=== PATIENT | male | born 1960 | race Caucasian/White ===

== ENCOUNTER 2018-12-03 10:29 | Emergency (ER) | payer MEDICARE, MEDICAID, SELFPAY ==
[2018-12-03 10:29] VITALS: BP 125/74; PULSE 73; RESP 20; TEMP 36.6; O2SAT 96; BMI 40.6
--- NOTE | 2018-12-03 11:10 | ED.VIS.GEN ---
History of Present Illness Chief Complaint: Nausea/Vomiting/Diarrhea Informant: Patient Onset: Yesterday Current Severity: Mild Maximum Severity: Moderate Narrative: Patient presents with nausea, vomiting, and diarrhea after eating out 2 days ago. He developed his illness yesterday. He believes he has food poisoning. His is ill with similar symptoms. He reports some upper abdominal cramping. His primary care physician had told him to take Imodium which has slowed his diarrhea somewhat. Past Medical History - Allergies and Home Meds Allergies/Adverse Reactions: Allergies codeine Allergy (Verified 12/03/18 10:31) Other furosemide [From Lasix] Allergy (Verified 12/03/18 10:31) Rash guaifenesin Allergy (Verified 12/03/18 10:31) Other levofloxacin [From Levaquin] Allergy (Verified 12/03/18 10:31) Other prednisolone Allergy (Verified 12/03/18 10:31) Other Primary Care Physician: Rishabh Gamino MD [Primary Care Provider] - Prior records reviewed: Yes Past Medical History: - - Reviewed Lives: Spouse/ Significant Other Smoking Status: Unknown if ever smoked Review of Systems General: Reports: Fever, Subjective. Denies: Chills Eyes: Denies: Visual changes - bilaterally ENT: Denies: Bilateral ear pain Cardiovascular: Denies: Chest pain Respiratory: Denies: Dyspnea Gastrointestinal: Reports: Abdominal pain, Nausea, Vomiting, Diarrhea Genitourinary: Denies: Dysuria Musculoskeletal: Denies: Back pain Skin: Denies: Rash Neurological: Denies: Headache Hematologic: Denies: Easy bruising, Easy bleeding Allergy: Denies: Uticaria Physical Exam Vital Signs/Narrative: Vital Signs Temp Pulse Resp BP Pulse Ox 12/03/18 10:29 97.9 F 73 20 H 125/74 H 96 Inital Vital Signs reviewed: Yes General: Well nourished, Well developed ENT: Dry mucous membranes Neck: Supple Cardiovascular: Regular rate, Regular rhythm Respiratory: No distress, CTA bilaterally Abdomen: Soft, Tender - Out upper abdominal tenderness., Hypoactive bowel sounds. Negative for: Guarding, Rebound tenderness Back: Nontender Skin: Normal color Neurological: Alert, Oriented x3 Psychological: Normal affect Diagnostic/Tx/Re-eval Laboratory Results 12/03/18 12/03/18 12/03/18 11:31 11:31 12:15 WBC 6.1 RBC 5.50 Hgb 15.7 Hct 47.1 MCV 85.6 MCH 28.5 MCHC 33.3 RDW Std Deviation 41.1 RDW Coeff of Ramon 13.2 Plt Count 234 MPV 9.9 Immature Gran % (Auto) 0.200 Neut % (Auto) 70.7 H Lymph % (Auto) 18.4 L [place] % (Auto) 8.2 Eos % (Auto) 1.5 Baso % (Auto) 1.0 Absolute Neuts (auto) 4.3 Absolute Lymphs (auto) 1.12 Nucleated RBC % 0 Sodium 136 Potassium 3.0 L Chloride 102 Carbon Dioxide 28.0 Anion Gap 6 BUN 16 Creatinine 1.08 Estim Creat Clear Calc 79.84 Est GFR (MDRD) Af Amer 90 Est GFR (MDRD) Non-Af 74 BUN/Creatinine Ratio 14.8 Glucose 97 Calcium 8.6 Total Bilirubin 0.70 Direct Bilirubin 0.17 AST 31 ALT 49 Alkaline Phosphatase 94 Total Protein 7.8 Albumin 3.9 Globulin 3.9 Lipase 191 Urine Color Yellow Urine Clarity Sl. Cloudy Urine pH 6.0 Ur Specific [place] 1.015 Urine Protein 15 H Urine Glucose (UA) Normal Urine Ketones 5 H Urine Occult Blood 150 H Urine Nitrite Negative Urine Bilirubin Negative Urine Urobilinogen Normal Ur Leukocyte Esterase 500 H Urine RBC 10-25 SEEN Urine WBC 25-50 SEEN Ur Squamous Epith Cells 0-5 SEEN Urine Bacteria 1+ Urine Mucus 0 SEEN - Medical Decision Making Patient refused IV fluids. He was given p.o. Bentyl and Zofran. He is been up and ambulate in the emergency room without difficulty. Stool studies were ordered but he has been unable to provide a sample. Patient will be given Bentyl and Zofran for home. He will also be given 3 days of Bactrim to cover his urine. ED Disposition - Plan for ED Patient: Disposition: Home or Assisted Living Diagnosis: Gastroenteritis, Hypokalemia, Bladder infection Prescriptions: Smz/Tmp Ds [Bactrim Ds] 1 tablet PO BID #6 tablet Potassium Chloride [K-Dur] 20 meq PO BID #8 tablet Ondansetron [Zofran Odt] 4 mg PO Q8H PRN PRN #10 tablet PRN Reason: Nausea Referrals: Rishabh Gamino MD [Primary Care Provider] - 1 Week if not improving
[2018-12-03] MEDS: Ondansetron ODT 4 MG Tablet PO (11:23)
[2018-12-03] MEDS: Dicyclomine 10 MG Capsule 20 MG PO (11:23)
[2018-12-03 11:42] LABS: Absolute Lymphocyte Count 1.12 X10^3/uL (0.83-4.51); Absolute Neutrophil Count 4.3 X10^3/uL (2.0-7.7); Basophil# 0.06 X10^3/uL; Eosinophil# 0.09 X10^3/uL; Eosinophils% 1.5 % (0-5); Hematocrit 47.1 % (40-54); Hemoglobin 15.7 g/dL (13.0-16.5); Lymphocyte # 1.12 X10^3/ul (4.0); Lymphocyte % 18.4 % (19-41); Mean Corp Hgb Conc 33.3 g/dL (32-36); Mean Corpuscular Hgb 28.5 pg (27.0-32.0); Mean Corpuscular Volume 85.6 fL (80-94); Mean Platelet Vol. 9.9 fl (6.2-12.0); Monocyte% 8.2 % (0-10); NRBC Flagged by Analyzer 0 % (0-5); Neutrophil # 4.32 X10^3/uL (2.7-7.7); Neutrophil % 70.7 % (47-70); Platelet Count 234 K/mm3 (150-450); RBC Distribution Width CV 13.2 % (11.6-14.6); RBC Distribution Width SD 41.1 fl (35.1-43.9); White Blood Count 6.1 K/mm3 (4.4-11.0)
[2018-12-03 11:58] LABS: AST(SGOT) 31 U/L (15-37); Alanine Aminotransfer ALT/SGPT 49 U/L (16-61); Albumin, Serum 3.9 g/dL (3.2-5.0); Alkaline Phosphatase 94 U/L (45-117); Anion Gap 6 (5-15); BUN 16 mg/dL (7-18); BUN/Creat Ratio 14.8 RATIO (10-20); Bilirubin, Direct 0.17 mg/dL (0.00-0.30); Calcium,Total 8.6 mg/dL (8.5-10.1); Chloride 102 mmol/L (98-107); Creatinine, Serum 1.08 mg/dL (0.70-1.30); EST Glomerular Filtration Rate 74 mL/min (>60); Est Glom Filt Rate - Afr Amer 90 mL/min (>60); Estimated Creatinine Clearance 79.84 ml/min; Globulin 3.9 g/dL (2.2-4.2); Glucose 97 mg/dL (74-106); Lipase 191 U/L (73-393); Protein, Total 7.8 g/dL (6.4-8.2); Sodium Level 136 mmol/L (136-145)
[2018-12-03 12:20] LABS: Mucous, Urine 0 SEEN /hpf (<or=2+)
[2018-12-03 12:22] LABS: Color, Urine Yellow (Yellow); Glucose, Dipstick Normal (Normal); Ketone-Dipstick 5 mg/dl (Negative); Leukocyte Esterase-Dipstick 500 /ul (Negative); Nitrite-Dipstick Negative (Negative); Occult Blood-Urine 150 /ul (Negative); Protein-Dipstick 15 mg/dl (Negative); Specific Gravity, Urine 1.015 (1.002-1.030); Urine Bilirubin Dipstick Negative (Negative); Urine Clarity Sl. Cloudy (Clear); Urine Urobilinogen Normal (Normal)
[2018-12-03 12:39] LABS: Bacteria 1+ /hpf (None Seen); Red Blood Cells-Urine 10-25 SEEN /hpf (0-5); Squamous Epithelial Cells - UA 0-5 SEEN /hpf (0-5); White Blood Cells 25-50 SEEN /hpf (0-5)
[2018-12-03 13:46] VITALS: BP 136/82; PULSE 95; RESP 17; O2SAT 96
[2018-12-03 14:09] VITALS: BP 128/86; PULSE 72; RESP 18; O2SAT 99
== END 2018-12-03 14:09 | disposition home or self-care (01) ==
PROVIDERS: Emergency Provider Emergency Medicine; Family Provider Family Medicine; PCP Family Medicine
DX: K52.9 Noninfective gastroenteritis and colitis, unspecified (principal); N30.90 Cystitis, unspecified without hematuria; E87.6 Hypokalemia
CPT/HCPCS: 36415; 80048; 80076; 81001; 83690; 85025; 99283

== ENCOUNTER 2019-01-27 16:06 | Emergency (ER) | payer MEDICARE, MEDICAID, SELFPAY ==
[2019-01-27 16:07] VITALS: BP 124/77; PULSE 79; RESP 15; TEMP 36.8; O2SAT 95; BMI 40.9
--- NOTE | 2019-01-27 17:01 | RAD_ITS ---
STUDY: X-RAY CHEST REASON FOR EXAM: Male, 58 years old. Cough. Shortness of breath. TECHNIQUE: Single AP portable view of the chest. COMPARISON: None. FINDINGS: The lungs are clear and expanded. There is no demonstrated pleural abnormality. Normal size heart. Normal mediastinum and yoni. Normal visualized pulmonary arteries. Normal visualized aortic arch and descending thoracic aorta. There are diffuse degenerative changes of the visualized thoracic spine. Normal visualized ribs, clavicles, and shoulders. There is no demonstrated abnormality of the visualized soft tissue structures of the upper abdomen. RAD/Chest 1 View (Portable) IMPRESSION: Degenerative changes, as described above. No demonstrated acute cardiopulmonary process. Electronically Signed: Manjeet Anderson MD at 17:38 EDT , Service support ,
--- NOTE | 2019-01-27 17:01 | ED.DEP ---
ED Disposition - Plan for ED Patient: Instructions: VIRAL SYNDROME (Adult) Prescriptions: Benzonatate [Tessalon Perle] 200 mg PO TID PRN PRN #20 capsule PRN Reason: Cough Referrals: Rishabh Gamino MD [Primary Care Provider] -
--- NOTE | 2019-01-27 17:05 | ED.VISSUMM ---
- ER Visit Summary Date of Service: 01/27/19 Chief Complaint: URI History of Present Illness: The patient is a 58 M presenting with URI symptoms. He states this has been ongoing for the past 2.5 weeks. He complains of runny nose, cough, congestion. He was seen by his primary care physician and started on doxycycline. He states he finished this 2 days ago and has continued symptoms. He denies fever. Denies chest pain or shortness of breath. He chews tobacco. No other complaints. Physical Examination: Vitals are stable. Patient is afebrile. Alert no acute distress. HEENT exam is unremarkable. Pharynx is normal, uvula midline. TMs obscured by cerumen bilaterally. Neck is supple. No meningismus Lungs are clear and equal bilaterally. Heart is regular rate and rhythm. Abdomen is soft nontender nondistended. Extremities are unremarkable. Skin is warm and dry. No rash No focal neurologic deficit. Remainder of exam is unremarkable. Emergency Department Course and Treatment: Chest x-ray shows no acute process. Patient was given prescription for Tessalon. He is advised to follow-up with his primary care physician. Advised return to ED for worsening complaints. Disposition: Discharge home Impression: URI This note was generated with [employer] dictation software. It may contain incorrect words, spelling, and punctuation that were not noted in review of the chart prior to signing ED Disposition - Plan for ED Patient: Disposition: Home or Assisted Living Instructions: VIRAL SYNDROME (Adult) Prescriptions: Benzonatate [Tessalon Perle] 200 mg PO TID PRN PRN #20 cap PRN Reason: Cough Prescription Printed Referrals: Rishabh Gamino MD [Primary Care Provider] -
[2019-01-27 17:17] VITALS: O2SAT 97
== END 2019-01-27 18:07 | disposition home or self-care (01) ==
PROVIDERS: Emergency Provider Emergency Medicine; Family Provider Family Medicine; PCP Family Medicine
DX: J06.9 Acute upper respiratory infection, unspecified (principal); F17.220 Nicotine dependence, chewing tobacco, uncomplicated; I10 Essential (primary) hypertension; Z79.899 Other long term (current) drug therapy
CPT/HCPCS: 71045; 99282

== ENCOUNTER → 2019-06-01 15:59 | Outpatient (CLI) | payer MEDICARE, MEDICAID, SELFPAY ==
[2019-01-31 14:04] VITALS: BMI 40.9
--- NOTE | 2019-06-01 16:19 | RAD_ITS ---
STUDY: X-RAY - LUMBAR SPINE REASON FOR EXAM: Male, 59 years old. PAIN ACROSS LOWER BACK. PATIENT STATES HAS HAD SEVERAL INJURYS TO HIS BACK OVER THE YEARS. TECHNIQUE: 3 view(s) of the lumbar spine were obtained. COMPARISON: None FINDINGS: Normal lumbar lordosis. There is multilevel endplate spondylosis of the lumbar vertebrae. There is multi-level degenerative disc disease with multi-level disc space narrowing. The soft tissue structures are unremarkable. RAD/Lumbar Spine 2 or 3 Views IMPRESSION: Degenerative changes of the spine. Electronically Signed: Sarah Porter MD at 8:28 EST Tel , Service support ,
== END ==
PROVIDERS: PCP Family Medicine; Referring Provider Anesthesiology Pain Medicine; Visit Provider Anesthesiology Pain Medicine
DX: M47.816 Spondylosis without myelopathy or radiculopathy, lumbar region (principal); M51.36 Other intervertebral disc degeneration, lumbar region; M48.061 Spinal stenosis, lumbar region without neurogenic claudication
CPT/HCPCS: 72100

== ENCOUNTER → 2021-01-10 | Outpatient (CLI) | payer MEDICARE, MEDICAID, SELFPAY | END | disposition home or self-care (01) | LOC: LABSPEC 15:17 | PROVIDERS: PCP Family Medicine; Visit Provider Physician Assistant | DX: L03.90 Cellulitis, unspecified (principal) | CPT/HCPCS: 87070; 87077; 87205 ==

== ENCOUNTER 2021-09-03 19:27 | Emergency (ER) | payer MEDICARE, MEDICAID, SELFPAY ==
[2021-09-03 19:27] VITALS: BP 175/82; PULSE 84; RESP 16; TEMP 36.8; O2SAT 96; BMI 40.6
--- NOTE | 2021-09-03 19:45 | ED.RN ---
PT WAS NOT HAPPY THAT HIM AND HIS COULD NOT BE IN THE SAME ROOM,NEAR EACH OTHER AND HAD A SIGN OUTSIDE HIS ROOM TO LET STAFF TAKE PRECAUTIONS FOR POSSIBLE COVID PATIENT SO HE LEFT.
== END 2021-09-03 19:52 | disposition left against medical advice (07) ==
PROVIDERS: PCP Family Medicine
DX: J02.9 Acute pharyngitis, unspecified (principal); Z53.21 Procedure and treatment not carried out due to patient leaving prior to being seen by health care provider

== ENCOUNTER 2023-01-03 14:25 | Emergency (ER) | payer MEDICARE, MEDICAID, SELFPAY ==
[2023-01-03 14:26] VITALS: BP 176/78; PULSE 69; RESP 18; TEMP 36.4; O2SAT 99; BMI 42.1
[2023-01-03] MEDS: 0.9% Normal Saline (1000mL) 1,000 ML 1000 ML IV (15:51)
--- NOTE | 2023-01-03 15:52 | EKG12_ITS ---
Test Reason : SYNCOPE Blood Pressure : / mmHG Vent. Rate : 076 BPM Atrial Rate : 076 BPM P-R Int : 208 ms QRS Dur : 160 ms QT Int : 450 ms P-R-T Axes : -25 -77 017 degrees QTc Int : 506 ms Sinus rhythm with Premature atrial complexes with Aberrant conduction Right bundle branch block Left anterior fascicular block Bifascicular block Abnormal ECG When compared with ECG of 11-NOV-2013 09:32, Fusion complexes are no longer Present Premature ventricular complexes are no longer Present Aberrant conduction is now Present Left anterior fascicular block is now Present Confirmed by MAI ARDON, DARRELL ([id number]), publication editor FRANCISCO JAVIER NOLAN ([id number]) on 01/14/2023 1:57:11 PM Referred By: ORION/MATHEW Confirmed By:DARRELL ONEILL MD
[2023-01-03 15:58] LABS: Absolute Lymphocyte Count 1.94 X10^3/uL (0.83-4.51); Absolute Neutrophil Count 5.8 X10^3/uL (2.0-7.7); Basophil# 0.08 X10^3/uL; Eosinophil# 0.16 X10^3/uL; Eosinophils% 1.9 % (0-5); Hematocrit 46.2 % (40-54); Hemoglobin 14.8 g/dL (13.0-16.5); Lymphocyte # 1.94 X10^3/ul (0.83-4.51); Lymphocyte % 23.2 % (19-41); Mean Corpuscular Hgb 28.4 pg (27.0-32.0); Mean Corpuscular Volume 88.5 fL (80-94); Mean Platelet Vol. 9.9 fl (6.2-12.0); Monocyte# 0.37 X10^3/uL; Monocyte% 4.4 % (0-10); NRBC Flagged by Analyzer 0 % (0-5); Neutrophil % 69.1 % (47-70); Platelet Count 289 K/mm3 (150-450); RBC Distribution Width CV 13.6 % (11.6-14.6); RBC Distribution Width SD 43.9 fl (35.1-43.9); Red Blood Count 5.22 M/mm3 (4.6-6.2); White Blood Count 8.4 K/mm3 (4.4-11.0)
--- NOTE | 2023-01-03 16:05 | RAD_ITS ---
INDICATION: Syncope EXAMINATION/TECHNIQUE: X-RAY - XR Chest 2 Views COMPARISON: 01/27/2019. FINDINGS: The lungs are clear. Tortuous and calcified thoracic aorta. The heart is mildly enlarged. No pleural effusion or pneumothorax. Degenerative changes of the thoracic spine. RAD/Chest PA and Lateral IMPRESSION: No acute radiographic abnormalities. Electronically Signed: Jorden Mcgowan MD at 16:51 EDT ,
[2023-01-03 16:19] LABS: Anion Gap 3 (5-15); BUN 15 mg/dL (7-18); BUN/Creat Ratio 13.3 RATIO (10-20); Chloride 104 mmol/L (98-107); Creatinine, Serum 1.13 mg/dL (0.70-1.30); EST Glomerular Filtration Rate 69 mL/min (>60); Est Glom Filt Rate - Afr Amer 84 mL/min (>60); Estimated Creatinine Clearance 72.49 ml/min; Glucose 124 mg/dL (74-106); Sodium Level 140 mmol/L (136-145); Troponin-I HS 14 pg/mL (3.0-78.0)
[2023-01-03] MEDS: Potassium Chloride Oral Tablet 20 MEQ 40 MEQ PO (17:00)
[2023-01-03 17:03] VITALS: BP 175/71; PULSE 57; RESP 16; O2SAT 95
--- NOTE | 2023-01-03 17:42 | EDS_ITS ---
HPI History of Present Illness Chief Complaint: Syncope Informant: patient Onset/Context/Timing Onset: Days (5) Context: Sudden Onset Timing: Continuous Quality: Aching Location: Midthoracic back and neck Worsened by: Coughing Relieved by: Nothing Narrative Narrative: Patient presents with a syncopal episode that occurred 5 days ago. Patient states that he passed out and fell. Patient states that since that time he has been having some pain in his neck and back. Patient describes it as aching. Patient states it is worse with coughing. Patient states nothing makes it better. Patient denies any sputum production. Patient denies any fevers or chills. Patient denies any chest pain or shortness of breath. Patient denies any palpitations. [facility] Medical History (Updated 01/03/23 @ 17:[address] Srinivasan Beltran, ) Arthritis Cellulitis of left lower extremity Chronic neck and back pain Hay fever Hypertension Shortness of breath Stomach ulcer Home Medications lisinopril 20 mg-hydrochlorothiazide 12.5 mg tablet 1 tab PO DAILY 11/10/13 [History Last Taken Unknown] omeprazole 20 mg capsule,delayed release 20 mg PO BID 11/10/13 [History Last Taken Unknown] clobetasol-emollient 0.05 % topical cream 30 gm TP BID 11/11/13 [History Last Taken Unknown] clotrimazole 1 % topical cream 1 applicatio topical BID 11/11/13 [History Last Taken Unknown] psyllium husk (aspartame) 3.4 gram oral powder packet 1 packet PO DAILY 11/11/13 [History Last Taken Unknown] salicylic acid 6 %-6 % kit,shampoo and gel 1 ea TP BID 11/11/13 [History Last Taken Unknown] ondansetron 4 mg disintegrating tablet 4 mg PO Q8H PRN PRN Nausea #10 tabs 12/03/18 [Rx Last Taken Unknown] potassium chloride 20 mEq tablet,extended release(part/cryst) 20 meq PO BID #8 tabs 12/03/18 [Rx Last Taken Unknown] benzonatate 100 mg capsule 200 mg (2 x 100 mg) PO TID PRN PRN Cough #20 caps 01/27/19 [Rx Last Taken Unknown] benzonatate 200 mg capsule 200 mg PO TID PRN cough #30 caps 02/01/19 [Rx Last Taken Unknown] bacitracin 500 unit/gram topical ointment 1 applic topical BID #30 grams 01/10/21 [Rx Last Taken Unknown] doxycycline monohydrate 100 mg capsule 100 mg PO BID #20 caps 01/10/21 [Rx Last Taken Unknown] Allergy/AdvReac Type Severity Reaction Status Date / Time codeine Allergy Other Verified 01/03/23 14:26 furosemide [From Lasix] Allergy Rash Verified 01/03/23 14:26 guaifenesin Allergy Other Verified 01/03/23 14:26 levofloxacin [From Levaquin] Allergy Other Verified 01/03/23 14:26 prednisolone Allergy Other Verified 01/03/23 14:26 Family History (Updated 01/10/21 @ 14:02 by Jayda Palacio) Mother Breast cancer Surgical History (Updated 01/03/23 @ 17:[address] Srinivasan Beltran DO) History of carpal tunnel surgery Social History Smoking Status: Never smoker Smokeless tobacco user: chewing tobacco alcohol intake: never ROS ROS ED Constitutional Constitutional ED: Denies chills or fever(s) Eyes Eyes: Denies blurry vision or change in vision ENT ENT ED: Denies rhinorrhea or sore throat Cardiovascular Cardiovascular: Denies chest pain or palpitations Respiratory/Chest Respiratory/Chest: Reports cough; Denies dyspnea Gastrointestinal Gastrointestinal: Denies nausea or vomiting Genitourinary Genitourinary ED: Denies dysuria or hematuria Musculoskeletal Musculoskeletal: Reports back pain and neck pain Integumentary Denies abscess or rash Neurologic Neurologic: Denies headache(s) or weakness Allergic/Immunologic Allergic/Immunologic ED: Denies mouth swelling or urticaria EXAM Physical Exam Const Vital Signs: 01/03/23 14:26 01/03/23 14:51 01/03/23 17:03 Temperature 97.5 F L Temperature Source Temporal Pulse Rate 69 57 L Respiratory Rate 18 16 Respiratory Effort Normal Non-Labored Respiratory Pattern Normal Blood Pressure 176/78 H 175/71 H Blood Pressure Mean 110 105 Pulse Ox 99 95 Oxygen Delivery Method Room Air Room Air Positive well nourished, well developed and obese General Appearance ED: well developed and NAD Nutritional Appearance: obese HEENT Reports moist mucous membranes Neck supple and no JVD Resp normal respiratory effort and clear to auscultation bilaterally Cardio regular rate and regular rhythm GI normal to inspection, nondistended, normoactive bowel sounds and non-tender Palpation: soft Back/Spine Back/Spine Narrative: There is tenderness over the mid thoracic paraspinal muscles. There is no midline tenderness. There is no bony crepitance or step-off noted. Range of motion was slightly limited in all motions of the thoracic spine secondary to pain. Extremity normal to inspection General Extremety ED: Negative for edema or tenderness General Extremity: Negative for edema Neuro oriented x3, CN's II-XII intact bilaterally and no sensory deficits noted Sensorium / Orientation: alert Motor Exam: strength 5/5 throughout Psych mental status grossly normal Skin no rashes or lesions noted MDM MDM MDM Narrative Medical decision making narrative: Differential diagnosis includes cardiac dysrhythmia, cardiac ischemia, pneumonia, pneumothorax, electrolyte abnormality, acute kidney injury, acute thoracic strain, and anxiety. EKG will be obtained to assess for cardiac dysrhythmia and cardiac ischemia. Chest x-ray will be obtained to assess for pneumonia, pneumothorax, and thoracic spine fracture. A CBC will be obtained to assess for leukocytosis and anemia. Basic metabolic profile will be obtained to assess for electrolyte abnormality and renal function. High-sensitivity troponin will be obtained to assess for cardiac ischemia. Lab Data Attestation: I reviewed the patient's lab results. Lab results narrative: CBC was reviewed and was within normal limits. Basic metabolic profile was reviewed and showed a potassium of 3.0. The remainder was within normal limits. High-sensitivity troponin was reviewed and was normal at 14. Labs: Laboratory Results - last 24 hr 01/03/23 15:50 WBC 8.4 RBC 5.22 Hgb 14.8 Hct 46.2 MCV 88.5 MCH 28.4 MCHC 32.0 RDW Std Deviation 43.9 RDW Coeff of Ramon 13.6 Plt Count 289 MPV 9.9 Immature Gran % (Auto) 0.400 Neut % (Auto) 69.1 Lymph % (Auto) 23.2 [place] % (Auto) 4.4 Eos % (Auto) 1.9 Baso % (Auto) 1.0 Absolute Neuts (auto) 5.8 Absolute Lymphs (auto) 1.94 Nucleated RBC % 0 Sodium 140 Potassium 3.0 L Chloride 104 Carbon Dioxide 33.0 H Anion Gap 3 L BUN 15 Creatinine 1.13 Estim Creat Clear Calc 72.49 Est GFR (MDRD) Af Amer 84 Est GFR (MDRD) Non-Af 69 BUN/Creatinine Ratio 13.3 Glucose 124 H Calcium 9.0 Troponin I High Sens 14 Radiography Diagnostic Testing: Clinical Impression(s) from Imaging Studies Chest X-Ray 01/03/23 16:05 IMPRESSION: No acute radiographic abnormalities. Electronically Signed: Jorden Mcgowan MD at 16:51 EDT , PA and lateral chest x-ray was obtained. There are 2 views. On my independent interpretation, lung calhoun are clear. There is normal cardiac silhouette. Bony thorax is normal. There is no acute process noted. Radiologist also interpreted the x-ray and agrees. EKG Initial EKG: Attestation: I personally reviewed and interpreted this EKG as follows: Interpretation: Sinus Rhythm (With PACs with a rate of 76), RBBB and Non- Specific ST Changes Comments: EKG was obtained. On my independent interpretation, it shows a normal sinus rhythm with a rate of 76 with occasional PACs. There is a right bundle branch block pattern noted. There is a left anterior fascicular block pattern noted. DE interval was slightly prolonged at 208 ms. QRS interval was prolonged at 160 ms. QTc interval was prolonged at 506 ms. There is left axis deviation at -77. There are nonspecific ST-T wave changes noted. This was unchanged compared to previous EKG dated 11/11/2013. Prior EKG tracings: available for review Prior: Unchanged (11/11/2013) Treatment and Re-Evaluation :: Patient was advised of his findings. Patient was instructed to take ibuprofen or Tylenol as needed for any pain. Patient was instructed to follow-up with his primary care physician in 5 to 7 days for further evaluation of his syncopal episode. Patient understood and was agreeable with the plan. All questions were answered. Discharge Plan Triage Chief Complaint: Syncope ED Provider: Srinivasan Beltran Dx/Rx/DC Orders Clinical Impression: Acute thoracic myofascial strain, Syncope and collapse Instructions: ED Back Sprain/Strain, ED Fainting, Uncertain Cause Prescriptions: No Action benzonatate 200 mg capsule 200 mg PO TID PRN (Reason: cough) Qty: 30 0RF doxycycline monohydrate 100 mg capsule 100 mg PO BID Qty: 20 0RF bacitracin 500 unit/gram ointment 1 applic topical BID Qty: 30 0RF lisinopril-hydrochlorothiazide 1 TABLET tablet 1 tab PO DAILY omeprazole 20 MG capsule 20 mg PO BID clotrimazole 1 APPLICATIO cream 1 applicatio topical BID clobetasol-emollient 30 GM cream 30 gm TP BID psyllium husk (aspartame) 1 PACKET packet 1 packet PO DAILY salicylic acid 1 EACH kit,shampoo and gel 1 ea TP BID ondansetron 4 MG tablet 4 mg PO Q8H PRN PRN (Reason: Nausea) Qty: 10 0RF potassium chloride 20 MEQ tablet 20 meq PO BID Qty: 8 0RF benzonatate 100 MG capsule 200 mg PO TID PRN PRN (Reason: Cough) Qty: 20 0RF Primary Care Provider: Rishabh Gamino Referrals: Rishabh Gamino MD [Primary Care Provider] - 3-5 Days Disposition Disposition: Home, Self Care
[2023-01-03 17:55] VITALS: BP 127/103; PULSE 86; RESP 16; O2SAT 95
== END 2023-01-03 18:04 | disposition home or self-care (01) ==
PROVIDERS: Emergency Provider Emergency Medicine; PCP Family Medicine; Visit Provider Emergency Medicine
DX: S29.019A Strain of muscle and tendon of unspecified wall of thorax, initial encounter (principal); R55 Syncope and collapse; F17.220 Nicotine dependence, chewing tobacco, uncomplicated; E66.9 Obesity, unspecified; W19.XXXA Unspecified fall, initial encounter
CPT/HCPCS: 71046; 80048; 84484; 85025; 93005; 96360; 99284; J7030; A4216

== ENCOUNTER 2023-12-01 05:44 | Emergency (ER) | payer MEDICARE, MEDICAID, SELFPAY ==
[2023-12-01 05:44] VITALS: BP 151/81; PULSE 60; RESP 18; TEMP 36.2; O2SAT 97; BMI 37.4
--- NOTE | 2023-12-01 06:03 | EX.ED.DYSGE1 ---
HPI History of Present Illness Chief Complaint: Lower Extremity Injury Informant: patient Narrative Narrative: Presents wound check to his lower extremities. Left leg had a small blister 2 weeks ago has progressed, he states overnight scratching his leg there is a blister opened up. Draining fluid. No fluid fevers. States similar symptoms last year larger blister managed by his primary care team with salve and wound care treatment. He is nondiabetic. Show 3 days ago bumped his right da silva on the recliner similar type smaller wound. Clear drainage. Prior similar symptoms: Yes PFSH FOR[facility]LY [facility], [facility] Medical History Cellulitis of left lower extremity Chronic neck and back pain Hay fever Stomach ulcer Shortness of breath Arthritis Hypertension Home Medications ?Medication ?Instructions ?Recorded ?Last Taken ?Type lisinopril 20 1 tab PO DAILY 11/10/13 Unknown History mg-hydrochlorothiazide 12.5 mg tablet omeprazole 20 mg capsule,delayed 20 mg PO BID 11/10/13 Unknown History release clobetasol-emollient 0.05 % 30 gm TP BID 11/11/13 Unknown History topical cream clotrimazole 1 % topical cream 1 applicatio topical BID 11/11/13 Unknown History psyllium husk (aspartame) 3.4 gram 1 packet PO DAILY 11/11/13 Unknown History oral powder packet salicylic acid 6 %-6 % kit,shampoo 1 ea TP BID 11/11/13 Unknown History and gel ondansetron 4 mg disintegrating 4 mg PO Q8H PRN PRN Nausea #10 tabs 12/03/18 Unknown Rx tablet potassium chloride 20 mEq 20 meq PO BID #8 tabs 12/03/18 Unknown Rx tablet,extended release(part/cryst) benzonatate 100 mg capsule 200 mg (2 x 100 mg) PO TID PRN PRN 01/27/19 Unknown Rx Cough #20 caps benzonatate 200 mg capsule 200 mg PO TID PRN cough #30 caps 02/01/19 Unknown Rx bacitracin 500 unit/gram topical 1 applic topical BID #30 grams 01/10/21 Unknown Rx ointment doxycycline monohydrate 100 mg 100 mg PO BID #20 caps 01/10/21 Unknown Rx capsule bacitracin 500 unit/gram topical 1 applic topical BID #30 grams 09/01/24 Unknown Rx ointment Allergy/AdvReac Type Severity Reaction Status Date / Time codeine Allergy Other Verified 12/01/23 05:48 furosemide (From Lasix) Allergy Rash Verified 12/01/23 05:48 guaifenesin Allergy Other Verified 12/01/23 05:48 levofloxacin (From Levaquin) Allergy Other Verified 12/01/23 05:48 prednisolone Allergy Other Verified 12/01/23 05:48 Family History Mother Breast cancer Surgical History History of carpal tunnel surgery Social History Smoking Status: Current every day smoker tobacco type: smokeless tobacco Smokeless tobacco user: chewing tobacco alcohol intake: never ROS ROS ED Constitutional Constitutional ED: Denies chills, fever(s) or sweats Cardiovascular Cardiovascular: Denies chest pain Respiratory/Chest Respiratory/Chest: Denies cough Gastrointestinal Gastrointestinal: Denies abdominal pain, diarrhea, nausea or vomiting Genitourinary Genitourinary ED: Denies urinary frequency Musculoskeletal Musculoskeletal: Denies extremity pain Integumentary Reports wounds; Denies rash Neurologic Neurologic: Denies paresthesias EXAM Physical Exam Const Vital Signs: 12/01/23 05:44 Temperature 97.1 F L Temperature Source Temporal Pulse Rate 60 Respiratory Rate 18 Blood Pressure 151/81 H Blood Pressure Mean 104 Pulse Ox 97 Oxygen Delivery Method Room Air Positive well nourished and well developed General Appearance ED: well developed and NAD HEENT Reports moist mucous membranes normocephalic and atraumatic Eyes EOMs intact bilaterally and conjunctivae normal General Eye ED: Yes normal appearance of both eyes Neck no lymphadenopathy and supple General: Negative for tenderness Chest Wall Chest: Negative for tenderness Resp normal respiratory effort and normal air movement Effort and Inspection: symmetric chest movement; Negative for respiratory distress Cardio regular rate, regular rhythm and no murmurs Peripheral Pulses: pulses 2+ throughout GI normal to inspection, nondistended, normoactive bowel sounds and non-tender Palpation: Negative for guarding or rebound tenderness present Back/Spine no CVA tenderness and no thoracic nor lumbar tenderness Extremity General Extremety ED: Negative for edema or tenderness General Extremity: Negative for edema Neuro oriented x3 and no sensory deficits noted Sensorium / Orientation: awake and alert Skin Skin Narrative: Left lower extremity: Distal anterior third of the leg, 1.5 x 3 cm superficial wound. Blister has sloughed off there is good granulation tissue. There was clear yellow drainage on the bandage. There is no streaking. Right lower extremity: Nickel size wound distal third of the tibia. Good granulations, noted clear yellow drainage on the dressing. No streaking. MDM MDM MDM Narrative Medical decision making narrative: Interventions / MDM: Differential diagnosis:Blisters, leg wounds Diagnosis considered but do not suspect: No clinical cellulitis My EKG interpretation: N/A Imaging independently reviewed and interpreted by myself: N/A External documents reviewed: N/A Test considered but not ordered:N/A ED course: Patient with leg wounds for report blisters prior to this. No fevers. Clear yellow drainage. I discussed good wound care with the patient, he will be treated with antibiotic ointment. He will follow-up with primary care team as they manage his other issues in the past. He is also given resource management specialist for follow-up if needed. All questions were answered. Re-evaluation: stable Disposition discussed with patient/family/significant other: Patient Case discussed with consulting clinician: N/A This note was generated with [employer] dictation software. It may contain incorrect words, spelling, and punctuation that were not noted in checking the note before signing. Discharge Plan Triage Chief Complaint: Lower Extremity Injury ED Provider: William Long Dx/Rx/DC Orders Clinical Impression: Leg wound, left, Leg wound, right Instructions: ED Wound Care Prescriptions: New bacitracin 500 unit/gram ointment 1 applic topical BID Qty: 30 0RF No Action benzonatate 200 mg capsule 200 mg PO TID PRN (Reason: cough) Qty: 30 0RF doxycycline monohydrate 100 mg capsule 100 mg PO BID Qty: 20 0RF bacitracin 500 unit/gram ointment 1 applic topical BID Qty: 30 0RF lisinopril-hydrochlorothiazide 1 TABLET tablet 1 tab PO DAILY omeprazole 20 MG capsule 20 mg PO BID clotrimazole 1 APPLICATIO cream 1 applicatio topical BID clobetasol-emollient 30 GM cream 30 gm TP BID psyllium husk (aspartame) 1 PACKET packet 1 packet PO DAILY salicylic acid 1 EACH kit,shampoo and gel 1 ea TP BID ondansetron 4 MG tablet 4 mg PO Q8H PRN PRN (Reason: Nausea) Qty: 10 0RF potassium chloride 20 MEQ tablet 20 meq PO BID Qty: 8 0RF benzonatate 100 MG capsule 200 mg PO TID PRN PRN (Reason: Cough) Qty: 20 0RF Primary Care Provider: Rishabh Gamino Referrals: Rishabh Gamino MD [Primary Care Provider] - 1 Week [facility] and [Non-Staff] - 1-2 Weeks Activity Restrictions/Additional Instructions: Wound will heal with good wound care daily. Use topical antibiotic ointment as provided with dressing daily. Follow-up with your doctor. Wound clinic also given for you to follow-up with few would like. Print Language: Uzbek Disposition Disposition: Home, Self Care
== END 2023-12-01 06:08 | disposition home or self-care (01) ==
LOC: ED 06:06
PROVIDERS: Emergency Provider Emergency Medicine; PCP Nurse Practitioner Family; Visit Provider Emergency Medicine
DX: S80.921A Unspecified superficial injury of right lower leg, initial encounter (principal); S80.922A Unspecified superficial injury of left lower leg, initial encounter; X58.XXXA Exposure to other specified factors, initial encounter; I10 Essential (primary) hypertension; F17.220 Nicotine dependence, chewing tobacco, uncomplicated; Z79.899 Other long term (current) drug therapy
CPT/HCPCS: 99282